=== PATIENT | female | born 1955 | race Caucasian/White ===

== ENCOUNTER 2020-07-19 16:29 | Emergency (ER) | payer OTHER ==
[~2020-07-19] VITALS: Ht 172.7 cm; Wt 106.1 kg
[2020-07-19 17:17] VITALS: BP 158/84; Ht 172.7 cm; Wt 106.1 kg
== END 2020-07-19 17:30 | disposition left against medical advice (07) ==
LOC: ED 16:29
DX: Z53.21 Procedure and treatment not carried out due to patient leaving prior to being seen by health care provider (principal)